=== PATIENT | male | born 1975 | race Caucasian/White ===

== ENCOUNTER 2023-06-21 07:30 | Emergency (ER) | payer OTHER, SELFPAY ==
[2023-06-21] VITALS (45 sets, daily range): BP systolic 105–184; BP diastolic 65–109; PULSE 53–76; RESP 9–24; TEMP 36.3; O2SAT 94–99; BMI 30.1
--- NOTE | 2023-06-21 07:43 | ECG_ITS ---
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
--- NOTE | 2023-06-21 07:43 | XR_ITS ---
The [address] [address] Patient Name: MARTIN BUCK MRN: [id number] date: 1975 Sex: M Assigned Patient Location: ER Current Patient Location: ER Accession/Order Number: [id number] Exam Date: 06/21/2023 07:48 Report Date: 06/21/2023 08:23 At the request of: DIANA HARRIS Procedure: XR chest 1V CHEST X-RAY, 1 VIEW HISTORY: Chest pain. COMPARISON: None. FINDINGS: The heart, rosales, and mediastinum are unremarkable. The lungs are grossly clear. There are no pleural effusions. There is no pneumothorax. XR/XR chest 1V IMPRESSION: No evidence of acute cardiopulmonary disease. Electronically authenticated by: YANI MUSTAFA Date: 06/21/2023 08:23
[2023-06-21] MEDS: NITROGLYCERIN 0.4 MG BOTTLE PO (08:02)
[2023-06-21] MEDS: FAMOTIDINE/PF 20 MG/2 ML VIAL IV (08:02)
[2023-06-21 08:09] LABS: Basophils Percent Auto 0.5 % (0.2-2.0); Eosinophils Absolute Auto 0.3 10^3/uL (0.0-0.7); Eosinophils Percent Auto 4.1 % (0.9-7.0); Hematocrit 44.9 % (42.0-54.0); Immature Granulocytes Abs Auto 0.02 10^3/uL (0.00-0.03); Immature Granulocytes Pct Auto 0.3 % (0.0-0.5); Lymphocytes Absolute Auto 1.4 10^3/uL (1.2-3.8); Lymphocytes Percent Auto 23.3 % (20.5-60.0); Mean Corpuscular HGB Conc 35.6 g/dL (29.9-35.2); Mean Corpuscular Hemoglobin 31.1 pg (25.9-34.0); Mean Corpuscular Volume 87.2 fL (80.0-94.0); Mean Platelet Volume 9.9 fL (9.5-13.5); Monocytes Absolute Auto 0.5 10^3/uL (0.3-0.8); Monocytes Percent Auto 8.8 % (1.7-12.0); Neutrophils Absolute Auto 3.9 10^3/uL (1.4-6.5); Platelet Count 206 10^3/uL (150-450); Red Blood Count 5.15 10^6/uL (4.70-6.10); White Blood Count 6.1 10^3/uL (4.0-11.0)
[2023-06-21 08:20] LABS: INR 1.05; Prothrombin Time 11.1 sec (9.0-11.6)
[2023-06-21 08:25] LABS: Alanine Aminotransferase 105 U/L (16-63); Albumin Globulin Ratio 1.1; Albumin Level 4.3 g/dL (3.4-5.0); Alkaline Phosphatase 82 U/L (46-116); Anion Gap 14.2; Aspartate Amino Transferase 48 U/L (15-37); BUN Creatinine Ratio 18.7; Bilirubin Total 0.6 mg/dL (0.2-1.0); Calcium 9.4 mg/dL (8.5-10.1); Carbon Dioxide 28.4 mmol/L (21.0-32.0); Chloride 100 mmol/L (98-107); Estimated GFR (African America >60 (>=60); Estimated GFR (Non-African Ame >60 (>=60); Globulin 3.8 g/dL; Glucose 214 mg/dL (74-106); Potassium 3.6 mmol/L (3.5-5.1); Sodium 139 mmol/L (136-145); Total Protein 8.1 g/dL (6.4-8.2)
[2023-06-21 08:26] LABS: Glucometer 186 mg/dL (74-106)
[2023-06-21 08:27] LABS: Troponin I High Sensitivity 5.5 pg/mL (4.0-76.1)
--- NOTE | 2023-06-21 08:34 | CT_ITS ---
[address] [address] Patient Name: MARTIN BUCK MRN: [id number] date: 1975 Sex: M Assigned Patient Location: ER Current Patient Location: Accession/Order Number: [id number] Exam Date: 06/21/2023 08:48 Report Date: 06/21/2023 09:43 At the request of: DIANA HARRIS Procedure: CT abdomen pelvis wo con CT ABDOMEN AND PELVIS WITHOUT CONTRAST HISTORY: Abdominal pain. COMPARISON: None. METHOD: Dose reduction techniques were achieved by using automated exposure control and/or adjustment of mA and/or kV according to patient size and/or use of iterative reconstruction technique. FINDINGS: The lung bases are clear. The evaluation of solid organs is limited with no IV contrast. The evaluation for lymphadenopathy is very limited with no IV contrast. There is no intrahepatic biliary ductal dilatation. The spleen is normal in size. The adrenal glands are normal appearing. The liver is fatty. There is a small gallstone. There are no renal stones or hydronephrosis. There is no bowel wall thickening or obstruction. The appendix is normal appearing. There is no free fluid or free air. The prostate is normal in size. There are no bladder stones. There are no acute bony abnormalities. CT/CT abdomen pelvis wo con IMPRESSION: Small gallstone. Fatty liver. Normal appendix. Electronically authenticated by: YANI MUSTAFA Date: 06/21/2023 09:43
[2023-06-21 10:32] LABS: Troponin I High Sensitivity 6.1 pg/mL (4.0-76.1)
--- NOTE | 2023-06-21 11:42 | ED_ITS ---
HPI - Chest Pain General Chief Complaint: Chest Pain Stated Complaint: CHEST PAIN Time Seen by Provider: 06/21/23 07:42 Source: patient Mode of arrival: walk-in Limitations: no limitations History of Present Illness HPI narrative: The patient presenting to us with a epigastric discomfort although he did mention that it is extending to his behind the heart , the patient denies any cough fever or any other complaint he mentioned that this discomfort started at almost 4 AM, there was no sweating there was no nausea and the patient have no diarrhea or any other complaints. He did mention that last night he had no complaint he just had dinner went to sleep. The patient denies any discomfort with the any fatty food he also mentioned having family history of cardiac complaint with his father diagnosed with jeanette nary artery disease at the age of 35 The patient is not a cigarette smoker No difficulty breathing no chest pain he mentioned that the pain is more of a pressure-like and heartburn like Related Data Previous Rx's Medication Instructions Recorded famotidine 20 mg tablet (Pepcid) 20 mg PO BID #20 tabs 06/21/23 Allergies Allergy/AdvReac Type Severity Reaction Status Date / Time No Known Drug Allergies Allergy Verified 06/21/23 07:38 Review of Systems ROS Status of ROS 10 or more systems reviewed and unremark able except as noted in history and below [facility] Social History Smoking status: Current every day smoker Exam Narrative Exam Narrative: Nurses notes and vital signs reviewed and patient is not hypoxic. General: Well-appearing and in no apparent distress. Skin: Warm, dry, no pallor noted. No rash. Head: Normocephalic, atraumatic. Neck: Supple, non-tender. Eye: Pupils are equal, round and EOMI. No scleral icterus. Ears, Nose, Mouth, and Throat: TM are clear, no nasal mucosal hypertrophy. Oral mucosa is moist, no posterior oropharynx erythema, uvula is mid-line Cardiovascular: Regular Rate and Rhythm without murmur, gallop or rub. Respiratory: No accessory muscle use or respiratory distress. Lungs are clear to auscultation, no wheezing, rales or rhonchi Chest Wall: no tenderness Back: No midline thoracic or lumbar vertebral tenderness. No CVA tenderness Musculoskeletal: normal ROM, no calf or popliteal tenderness, no lower extremity edema/swelling GI: Abdomen is soft, non-distended. Normal bowel sounds. No masses appreciated. No tenderness to palpation. No rebound, guarding, or rigidity noted. Neurological: A&O x4. No cranial nerve dysfunction observed. No truncal ataxia. Moves all extremities. Sensation intact. Psychiatric: Cooperative and interactive. Normal mood and affect. Constitutional Vital Signs, click to edit/add: Last Vital Signs Temp 97.4 F L 06/21/23 07:36 Pulse 76 06/21/23 11:11 Resp 17 06/21/23 11:11 BP 160/93 H 06/21/23 11:10 Pulse Ox 98 06/21/23 11:11 O2 Del Method Room Air 06/21/23 07:49 Course Vital Signs Vital signs: Vital Signs Temperature 97.4 F L 06/21/23 07:36 Pulse Rate 60 06/21/23 07:36 Respiratory Rate 18 06/21/23 07:36 Pulse Oximetry 99 06/21/23 07:36 Oxygen Delivery Method Room Air 06/21/23 07:36 Temperature 97.4 F L 06/21/23 07:36 Pulse Rate 76 06/21/23 11:11 Respiratory Rate 17 06/21/23 11:11 Blood Pressure 160/93 H 06/21/23 11:10 Pulse Oximetry 98 06/21/23 11:11 Oxygen Delivery Method Room Air 06/21/23 07:49 MDM - Chest Pain MDM Narrative Medical decision making narrative: The patient is morbidly obese he did had an EKG initially showing sinus rhythm with a heart rate of [address] elevation or depression. We did provide the patient with nitroglycerin after which his blood pressure did drop to 120 but he did had some mild sweating but his EKG also did still showed no ST elevation or depression The patient CBC chemistry showed no acute pathology and the troponin repeated while showed no significant elevation The patient chest x-ray showed no acute pathology He did had a improvement with the Pepcid in the ER as well as nitroglycerin initially The patient presentation right now is mostly secondary to discomfort secondary to atypical chest pain and possibly acid reflux but the patient is a high risk and with his family history I did refer him to cardiology as outpatient and I did explain to him that right now we will out coronary artery disease acute event but we did not rule out coronary artery disease and he is at risk for that The patient CAT scan showed no acute pathology he was discharged home with Pepcid and referral to cardiology as outpatient was instruction to come back in case of any new symptoms The patient is to follow up with primary care physician in next 2-3 days or to return to the emergency department should any of the signs or symptoms worsen or new symptoms develop. The patient agrees with the following Diagnosis and Treatment plan and the patient will be discharged home. Lab Data Labs: Lab Results 06/21/23 06/21/23 06/21/23 Range/Units 07:40 08:25 10:05 WBC 6.1 (4.0-11.0) 10^3/uL RBC 5.15 (4.70-6.10) 10^6/uL Hgb 16.0 (14.0-18.0) g/dL Hct 44.9 (42.0-54.0) % MCV 87.2 (80.0-94.0) fL MCH 31.1 (25.9-34.0) pg MCHC 35.6 H (29.9-35.2) g/dL RDW 13.0 (11.0-15.0) % Plt Count 206 (150-450) 10^3/uL MPV 9.9 (9.5-13.5) fL Neut % (Auto) 63.0 (43.0-75.0) % Lymph % (Auto) 23.3 (20.5-60.0) % [place] % (Auto) 8.8 (1.7-12.0) % Eos % (Auto) 4.1 (0.9-7.0) % Baso % (Auto) 0.5 (0.2-2.0) % Neut # (Auto) 3.9 (1.4-6.5) 10^3/uL Lymph # (Auto) 1.4 (1.2-3.8) 10^3/uL [place] # (Auto) 0.5 (0.3-0.8) 10^3/uL Eos # (Auto) 0.3 (0.0-0.7) 10^3/uL Baso # (Auto) 0.0 (0.0-0.1) 10^3/uL Abs Immat Gran (auto) 0.02 (0.00-0.03) 10^3/uL Imm/Tot Granulo (auto) 0.3 (0.0-0.5) % PT 11.1 (9.0-11.6) sec INR 1.05 Sodium 139 (136-145) mmol/L Potassium 3.6 (3.5-5.1) mmol/L Chloride 100 (98-107) mmol/L Carbon Dioxide 28.4 (21.0-32.0) mmol/L Anion Gap 14.2 BUN 17.0 (7.0-18.0) mg/dL Creatinine 0.91 (0.70-1.30) mg/dL Est GFR ( Amer) >60 (>=60) Est GFR (Non-Af Amer) >60 (>=60) BUN/Creatinine Ratio 18.7 Glucose 214 H (74-106) mg/dL Calcium 9.4 (8.5-10.1) mg/dL Total Bilirubin 0.6 (0.2-1.0) mg/dL AST 48 H (15-37) U/L ALT 105 H (16-63) U/L Alkaline Phosphatase 82 (46-116) U/L Troponin I High Sens 5.5 6.1 (4.0-76.1) pg/mL Total Protein 8.1 (6.4-8.2) g/dL Albumin 4.3 (3.4-5.0) g/dL Globulin 3.8 g/dL Albumin/Globulin Ratio 1.1 POC Glucose 186 H (74-106) mg/dL Discharge Plan Discharge Chief Complaint: Chest Pain Clinical Impression: Chest pain due to GERD, Atypical chest pain Patient Disposition: Home, Self-Care Time of Disposition Decision: 11:08 Condition: Good Prescriptions / Home Meds: New famotidine [Pepcid] 20 mg tablet 20 mg PO BID Qty: 20 0RF Instructions: Chest Pain (DC), Indigestion (ED) Stand Alone Forms: Portal Instructions Referrals: Physician,Non-Staff, [Primary Care Provider] - 1 week BRITT HARE [Physician] - 1 week Discharge Date/Time: 06/21/23 11:19
--- NOTE | 2023-06-21 19:30 | ECG_ITS ---
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
== END 2023-06-21 11:19 | disposition home or self-care (01) ==
PROVIDERS: Emergency Provider Emergency Medicine
DX: K21.9 Gastro-esophageal reflux disease without esophagitis (principal); R07.89 Other chest pain; F17.200 Nicotine dependence, unspecified, uncomplicated; E66.01 Morbid (severe) obesity due to excess calories; Z68.30 Body mass index [BMI] 30.0-30.9, adult; Z82.49 Family history of ischemic heart disease and other diseases of the circulatory system
CPT/HCPCS: 36415; 71045; 74176; 80053; 82948; 84484; 85025; 85610; 93005; 96374; 99285

== ENCOUNTER 2023-08-02 11:10 | Emergency (ER) | payer OTHER, SELFPAY ==
[2023-08-02 11:16] VITALS: BP 165/100; PULSE 90; RESP 18; TEMP 37.1; O2SAT 96; BMI 30.1
--- NOTE | 2023-08-02 11:24 | PC.NURSE ---
Pt was having dental pain and saw his dentist on Friday and had a procedure on his right upper tooth/ gum. He was put on Augmentin but his right side of face is swelling and continues to swell, extending into right eye. He called the Dr and was told to come to ER. Face is swollen but still soft to touch.
--- NOTE | 2023-08-02 11:31 | CT_ITS ---
[address] [address] Patient Name: MARTIN BUCK MRN: [id number] date: 1975 Sex: M Assigned Patient Location: ER Current Patient Location: Accession/Order Number: [id number] Exam Date: 08/02/2023 11:58 Report Date: 08/02/2023 13:58 At the request of: DIANA HARRIS Procedure: CT facial bones wo con EXAM: CT scan of the facial bones. TECHNIQUE CT scan performed through the facial bones and reconstructed in the axial, coronal and sagittal plane. Dose reduction techniques were achieved by using automated exposure control and/or adjustment of mA and/or kV according to patient size and/or use of iterative reconstruction technique. HISTORY: Right-sided facial swelling and pain. FINDINGS: Overall quality of the examination is diminished by streak artifact from the patient's teeth. Stranding and increased density in the right cheek subcutaneous soft tissues. No definite buccal space phlegmon or abscess. Right maxillary periapical abscess right canine, measuring 11 mm in diameter and left second incisor measuring 5 mm. No evidence of mandibular periapical abscess or caries. Mucosal thickening right maxillary sinus. Mucosal thickening and air-fluid level left maxillary sinus. CT/CT facial bones wo con IMPRESSION: 1. Overall quality is diminished by beam hardening artifact from the patient's teeth. 2. Probable right cheek cellulitis. No definite buccal space phlegmon or abscess. 3. Maxillary periapical abscess, the largest of which measures 11 mm. Electronically authenticated by: Lisa KELLER Date: 08/02/2023 13:58
--- NOTE | 2023-08-02 11:31 | CT_ITS ---
[address] [address] Patient Name: MARTIN BUCK MRN: [id number] date: 1975 Sex: M Assigned Patient Location: ER Current Patient Location: Accession/Order Number: [id number] Exam Date: 08/02/2023 11:58 Report Date: 08/02/2023 12:36 At the request of: DIANA HARRIS Procedure: CT head/brain wo con Exam: CT scan of brain. TECHNIQUE: CT scan performed through the brain reconstructed in the axial, coronal sagittal plane. Dose reduction techniques were achieved by using automated exposure control and/or adjustment of mA and/or kV according to patient size and/or use of iterative reconstruction technique.. HISTORY: Right maxilla swelling headache FINDINGS: Normal examination of the brain. The ventricles, sulci, and basilar cisterns are normal in appearance. The cerebral hemispheres, brain stem and cerebellar hemispheres are normal. Farley-white interface is intact. No evidence of acute infarct. No evidence of mass, hemorrhage or density abnormality. The osseous structures are intact. Orbital apices normal. CT/CT head/brain wo con IMPRESSION: Normal examination. Electronically authenticated by: Lisa KELLER Date: 08/02/2023 12:36
--- OUTSIDE RECORDS SUMMARY | 2023-08-02 11:34 | XMS_ITS | CCD ---
Author Name Unknown Address [address] [place] [address] Organization [facility] Care Team Providers Care Raw Hide Trimmer Name Role Phone Juan Tubbs Unavailable Martin Calvert Unavailable Luis A Chavez Unavailable DO Juan Tubbs Primary Care Provider MD Luis A Chavez Attending Provider DO Juan Tubbs Primary Care Provider DO Juan Tubbs Attending Provider [phone] Juan Tubbs Primary Care Unavailable Luis A Chavez Admitting Unavailable Luis A Chavez Attending Unavailable Juan Tubbs Primary Care Unavailable Juan Tubbs Attending Unavailable Juan Tubbs Admitting Unavailable Juan Tubbs Primary Care Unavailable Luis A Chavez Admitting Unavailable Luis A Chavez Attending Unavailable Medications Current Medications Medication Drug Class(es) Dates Sig (Normalized) Sig (Original) {1 (ascorbic acid 7540 MG / polyethylene glycol 3350 11192 MG / potassium chloride 1200 MG / sodium ascorbate 87010 MG / sodium chloride 3200 MG Powder for Oral Solution) / 1 (polyethylene glycol 3350 713830 MG / potassium chloride 1000 MG / sodium chloride 2000 MG / sodium sulfate 9000 MG Powder for Oral Solution) } Pack [Plenvu] (2 sources) Osmotic Laxative, Vitamin C Start: 01-18-2022 Plenvu 140 GM dose 1 pouch at 4pm, dose 2 pouch A & B at 11pm Orally twice a day for 1 days BIN:[id number] PCN: [id number] GROUP:[id number] ID:[id number] Dec, Active atorvastatin 20 mg oral tablet (8 sources) HMG-CoA Reductase Inhibitor Start: 09-21-2020 take 1 tablet by mouth every twenty-four hours Atorvastatin Calcium 20 MG 1 tablet Orally Once a day for 90 day(s) Sep, Active colchicine 0.6 mg oral tablet (4 sources) Start: 12-03-2021 take 1 tablet by mouth every twelve hours Colchicine 0.6 MG 1 tablet as needed Orally every 12 hours for 5 day(s) Nov, Active omeprazole 40 mg delayed release oral capsule (10 sources) Proton Pump Inhibitor Start: 05-03-2022 take 40 mg by mouth once daily Omeprazole Active 40 MG PO Daily May 03, 2022 1:00am Problems Active Problems Problem Classification Problem Date Documented Date Episodic/Chronic Disorders of lipid metabolism (9 sources) Hyperlipidemia; Translations: [Hyperlipidemia, unspecified] Onset: 10-04-2021 Resolved: 10-04-2021 Chronic Esophageal disorders (8 sources) Gastroesophageal reflux disease; Translations: [Gastro-esophageal reflux disease without esophagitis] Chronic Gout and other crystal arthropathies (8 sources) Gout; Translations: [Gout, unspecified] Chronic Miscellaneous mental health disorders (8 sources) Psychophysiologic insomnia; Translations: [Psychophysiologic insomnia] Chronic Other hereditary and degenerative nervous system conditions (8 sources) Restless legs; Translations: [Restless legs syndrome] Chronic Unclassified (1 source) Encounter for general adult medical examination without abnormal findings; Translations: [Encounter for general adult medical examination without abnormal findings] Onset: 10-15-2022 Unclassified (1 source) Encounter for screening for malignant neoplasm of colon; Translations: [Encounter for screening for malignant neoplasm of colon] Onset: 05-03-2022 Unclassified (1 source) Encounter for preprocedural laboratory examination; Translations: [Encounter for preprocedural laboratory examination] Onset: 05-01-2022 Past or Other Problems Problem Classification Problem Date Documented Date Episodic/Chronic Other screening for suspected conditions (not mental disorders or infectious disease) (6 sources) Encounter for screening for cardiovascular disorders; Translations: [Encounter for screening for diabetes mellitus] Onset: 09-03-2021 Resolved: 01-17-2022 Episodic Results Test Name Value Interpretation Reference Range Facility Alanine aminotransferase [En zymatic activity/volume] in Serum or PlasmaOrdered By: Juan Tubbs on 10-15-2022 ALT [Catalytic activity/Vol] 84 U/L 7-52 [facility] Albumin [Mass/volume] in Ser um or Plasma by Bromocresol green (BCG) dye binding methoOrdered By: Juan Tubbs on 10-15-2022 Albumin BCG dye [Mass/Vol] 4.8 g/dL 3.5-5.7 [facility] Alkaline phosphatase [Enzyma tic activity/volume] in Serum or PlasmaOrdered By: Juan Tubbs on 10-15-2022 ALP [Catalytic activity/Vol] 62 U/L 34-104 [facility] Aspartate aminotransferase [ Enzymatic activity/volume] in Serum or PlasmaOrdered By: Juan Tubbs on 10-15-2022 AST [Catalytic activity/Vol] 50 U/L 13-39 [facility] Bilirubin.total [Mass/volume ] in Serum or PlasmaOrdered By: Juan Tubbs on 10-15-2022 Bilirubin [Mass/Vol] 0.8 mg/dL 0.3-1.0 [facility] Calcium [Mass/volume] in Ser um or PlasmaOrdered By: Juan Tubbs on 10-15-2022 Calcium [Mass/Vol] 9.2 mg/dL 8.6-10.3 [facility] Carbon dioxide, total [Moles /volume] in Serum or PlasmaOrdered By: Juan Tubbs on 10-15-2022 CO2 [Moles/Vol] 30.6 mmol/L 21.0-31.0 [facility] Chloride [Moles/volume] in S kyler or PlasmaOrdered By: Juan Tubbs on 10-15-2022 Chloride [Moles/Vol] 104 mmol/L 98-107 [facility] Cholesterol [Mass/volume] in Serum or PlasmaOrdered By: Juan Tubbs on 10-15-2022 Cholesterol [Mass/Vol] 217 mg/dL 140-200 [facility] Comment on above: Chol less than 200 m g/dl low riskChol 201-239 mg/dl borderline riskChol 240 mg/dl and greater high risk Cholesterol in LDL Calc [Mas s/Vol]Ordered By: Juan Tbubs on 10-15-2022 Cholesterol in LDL [Mass/Vol] 157 mg/dL 0-100 [facility] Comment on above: LDL ATP III CLASSIFI CATIONLDL less than 100 mg/dL OptimalLDL 100-129 mg/dL Near or above optimalLDL 130-159 mg/dL Borderline highLDL 160-189 mg/dL HighLDL greater than 189 mg/dL Very high Cholesterol in VLDL Calc [Ma ss/Vol]Ordered By: Juan Tubbs on 10-15-2022 Cholesterol in VLDL [Mass/Vol] 28 mg/dL [facility] Comprehensive Metabolic Pane dayanna 10-15-2022 Albumin [Mass/Vol] 4.8 g/dL Normal 3.5-5.7 [facility] Comment on above: Order Comment: Reaso n for Exam Well adult exam;Screening for diabetes mellitus;Screening fo Performed By: #### L IPID, CMP #### [facility] [address] Albumin/Globulin [Mass ratio] 1.8 {ratio} Normal [facility] Comment on above: Order Comment: Reaso n for Exam Well adult exam;Screening for diabetes mellitus;Screening fo Performed By: #### L IPID, CMP #### [facility] [address] [place] [address] [place] ALP [Catalytic activity/Vol] 62 U/L Normal 34-104 [facility] Comment on above: Order Comment: Reaso n for Exam Well adult exam;Screening for diabetes mellitus;Screening fo Performed By: #### L IPID, CMP #### [facility] [address] [place] [address] [place] ALT [Catalytic activity/Vol] 84 U/L High 7-52 [facility] Comment on above: Order Comment: Reaso n for Exam Well adult exam;Screening for diabetes mellitus;Screening fo Performed By: #### L IPID, CMP #### [facility] [address] [place] [address] [place] Anion gap [Moles/Vol] 11.4 mmol/L Normal 6.0-15.0 [facility] Comment on above: Order Comment: Reaso n for Exam Well adult exam;Screening for diabetes mellitus;Screening fo Performed By: #### L IPID, CMP #### [facility] [address] [place] [id number] [facility] AST [Catalytic activity/Vol] 50 U/L High 13-39 [facility] Comment on above: Order Comment: Reaso n for Exam Well adult exam;Screening for diabetes mellitus;Screening fo Performed By: #### L IPID, CMP #### [facility] [address] [place] [id number] [facility] Bilirubin [Mass/Vol] 0.8 mg/dL Normal 0.3-1.0 [facility] Comment on above: Order Comment: Reaso n for Exam Well adult exam;Screening for diabetes mellitus;Screening fo Performed By: #### L IPID, CMP #### [facility] [address] Calcium [Mass/Vol] 9.2 mg/dL Normal 8.6-10.3 [facility] Comment on above: Order Comment: Reaso n for Exam Well adult exam;Screening for diabetes mellitus;Screening fo Performed By: #### L IPID, CMP #### [facility] [address] Chloride [Moles/Vol] 104 mmol/L Normal 98-107 [facility] Comment on above: Order Comment: Reaso n for Exam Well adult exam;Screening for diabetes mellitus;Screening fo Performed By: #### L IPID, CMP #### [facility] [address] [place] [address] [place] CO2 [Moles/Vol] 30.6 mmol/L Normal 21.0-31.0 [facility] Comment on above: Order Comment: Reaso n for Exam Well adult exam;Screening for diabetes mellitus;Screening fo Performed By: #### L IPID, CMP #### [facility] [address] [place] [id number] [place] Creatinine [Mass/Vol] 0.86 mg/dL Normal 0.70-1.30 [facility] Comment on above: Order Comment: Reaso n for Exam Well adult exam;Screening for diabetes mellitus;Screening fo Performed By: #### L IPID, CMP #### [facility] [address] [place] [address] [place] GFR/1.73 sq M.predicted MDRD (S/P/Bld) [Vol rate/Area] mL/min/{1.73_m2} Normal [facility] Comment on above: Order Comment: Reaso n for Exam Well adult exam;Screening for diabetes mellitus;Screening fo Performed By: #### L IPID, CMP #### [facility] [address] [place] [id number] [facility] Globulin (S) [Mass/Vol] 2.7 g/dL Normal [facility] Comment on above: Order Comment: Reaso n for Exam Well adult exam;Screening for diabetes mellitus;Screening fo Performed By: #### L IPID, CMP #### [facility] [address] Glucose [Mass/Vol] 113 mg/dL High 70-100 [facility] Comment on above: Order Comment: Reaso n for Exam Well adult exam;Screening for diabetes mellitus;Screening fo Result Comment: [facility] Glucose Reference Range is dependent on time and content of last meal. Glucose of more than 200 mg/dL in a nonstressed, ambulatory subject supports the diagnosis of Diabetes Mellitus. ADA recommended reference range Performed By: #### L IPID, CMP #### [facility] [address] Potassium [Moles/Vol] 4.0 mmol/L Normal 3.5-5.1 [facility] Comment on above: Order Comment: Reaso n for Exam Well adult exam;Screening for diabetes mellitus;Screening fo Performed By: #### L IPID, CMP #### [facility] [address] [place] [id number] [facility] Protein [Mass/Vol] 7.5 g/dL Normal 6.4-8.9 [facility] Comment on above: Order Comment: Reaso n for Exam Well adult exam;Screening for diabetes mellitus;Screening fo Performed By: #### L IPID, CMP #### [facility] [address] [place] [id number] [facility] Sodium [Moles/Vol] 142 mmol/L Normal 136-145 [facility] Comment on above: Order Comment: Reaso n for Exam Well adult exam;Screening for diabetes mellitus;Screening fo Performed By: #### L IPID, CMP #### [facility] [address] [place] [id number] [place] Urea nitrogen [Mass/Vol] 18 mg/dL Normal 7-25 [facility] Comment on above: Order Comment: Reaso n for Exam Well adult exam;Screening for diabetes mellitus;Screening fo Performed By: #### L IPID, CMP #### [facility] [address] [place] [id number] [place] Creatinine [Mass/volume] in Serum or PlasmaOrdered By: Juan Tubbs on 10-15-2022 Creatinine [Mass/Vol] 0.86 mg/dL 0.70-1.30 [facility] Globulin Calc (S) [Mass/Vol] Ordered By: Juan Tubbs on 10-15-2022 Globulin (S) [Mass/Vol] 2.7 g/dL [facility] Glucose [Mass/volume] in Ser um or PlasmaOrdered By: Juan Tubbs on 10-15-2022 Glucose [Mass/Vol] 113 mg/dL 70-100 [facility] Comment on above: ADA recommended refe rence rangeRandom Glucose Reference Range is dependent on time and content of last meal. Glucose of more than 200 mg/dL in a nonstressed, ambulatory subject supports the diagnosis of Diabetes Mellitus. Lipid Panelon 10-15-2022 Cholesterol [Mass/Vol] 217 mg/dL High 140-200 [facility] Comment on above: Order Comment: Reaso n for Exam Well adult exam;Screening for diabetes mellitus;Screening fo Result Comment: Chol less than 200 mg/dl low risk Chol 201-239 mg/dl borderline risk Chol 240 mg/dl and greater high risk Performed By: #### L IPID, CMP #### [facility] [address] [place] [id number] [facility] Cholesterol in HDL [Mass/Vol] 32 mg/dL Normal 29-71 [facility] Comment on above: Order Comment: Reaso n for Exam Well adult exam;Screening for diabetes mellitus;Screening fo Result Comment: HDL CHOL ATP-III CLASSIFICATION Cardiovascular Risk HDL > or equal to 60 mg/dL LOW HDL < 40 mg/dL HIGH Performed By: #### L IPID, CMP #### [facility] [address] Cholesterol.total/Choles terol in HDL [Mass ratio] 6.8 {ratio} Normal <5.0 [facility] Comment on above: Order Comment: Reaso n for Exam Well adult exam;Screening for diabetes mellitus;Screening fo Result Comment: PERF ORMED BY: [place] [address] PATHOLOGIST CLIENT COORDINATOR VESNA BERNABE M.D. Performed By: #### L IPID, CMP #### [facility] [address] LDL Cholesterol,Calculated 157 mg/dL High 0-100 [facility] Comment on above: Order Comment: Reaso n for Exam Well adult exam;Screening for diabetes mellitus;Screening fo Result Comment: LDL ATP III CLASSIFICATION LDL less than 100 mg/dL Optimal LDL 100-129 mg/dL Near or above optimal LDL 130-159 mg/dL Borderline high LDL 160-189 mg/dL High LDL greater than 189 mg/dL Very high Performed By: #### L IPID, CMP #### [facility] [address] Triglyceride w/Reflex 142 mg/dL Normal 0-149 [facility] Comment on above: Order Comment: Reaso n for Exam Well adult exam;Screening for diabetes mellitus;Screening fo Result Comment: TRIG ATP III CLASSIFICATION TRIG less than 150 mg/dL Normal TRIG 150-199 mg/dL Borderline high TRIG 200-500 mg/dL High TRIG greater than 500 mg/dL Very high Standard traceable to the Center for Disease Conrtrol and Prevention (CDC) test method. Performed By: #### L IPID, CMP #### [facility] [address] VLDL CHOLESTEROL 28 mg/dL Normal [facility] Comment on above: Order Comment: Reaso n for Exam Well adult exam;Screening for diabetes mellitus;Screening fo Performed By: #### L IPID, CMP #### [facility] [address] No Panel InformationOrdered By: Juan Tubbs on 10-15-2022 Estimated GFR (CKD-EPI) > 60.0 mL/Min [facility] Creatinine Clearance (Chem N/A [facility] Potassium [Moles/volume] in Serum or PlasmaOrdered By: Juan Tubbs on 10-15-2022 Potassium [Moles/Vol] 4.0 mmol/L 3.5-5.1 [facility] Protein [Mass/volume] in Ser um or PlasmaOrdered By: Juan Tubbs on 10-15-2022 Protein [Mass/Vol] 7.5 g/dL 6.4-8.9 [facility] Serum or plasma albumin/glob ulin mass ratioOrdered By: Juan Tubbs on 10-15-2022 Albumin/Globulin [Mass ratio] 1.8 {ratio} [facility] Serum or plasma anion gap de terminationOrdered By: Juan Tubbs on 10-15-2022 Anion gap [Moles/Vol] 11.4 mmol/L 6.0-15.0 [facility] Serum or plasma high density lipoprotein (HDL) cholesterol measurementOrdered By: Juan Tubbs on 10-15-2022 Cholesterol in HDL [Mass/Vol] 32 mg/dL 29-71 [facility] Comment on above: HDL CHOL ATP-III CLA SSIFICATION Cardiovascular RiskHDL > or equal to 60 mg/dL LOWHDL < 40 mg/dL HIGH Serum or plasma total choles terol/high density lipoprotein (HDL) cholesterol mass ratOrdered By: Juan Tubbs on 10-15-2022 Cholesterol.total/Choles terol in HDL [Mass ratio] 6.8 {ratio} <5.0 [facility] Sodium [Moles/volume] in Ser um or PlasmaOrdered By: Juan Tubbs on 10-15-2022 Sodium [Moles/Vol] 142 mmol/L 136-145 [facility] Triglyceride [Mass/volume] i n Serum or PlasmaOrdered By: Juan Tubbs on 10-15-2022 Triglyceride [Mass/Vol] 142 mg/dL 0-149 [facility] Comment on above: TRIG ATP III CLASSIF ICATIONTRIG less than 150 mg/dL NormalTRIG 150-199 mg/dL Borderline highTRIG 200-500 mg/dL High TRIG greater than 500 mg/dL Very highStandard traceable to the Center for Disease Conrtrol and Prevention (CDC) test method. Urea nitrogen [Mass/volume] in Serum or PlasmaOrdered By: Juan Tubbs on 10-15-2022 Urea nitrogen [Mass/Vol] 18 mg/dL 01-14 [facility] COVID-19 Antigenon 2 COVID-19 Antigen Healthcare Worker?: N Reference Range: Negative Negative results, from patients with symptom onset beyond five days, should be treated as presumptive and confirmation with a molecular assay, if necessary, for patient management, may be performed. Negative results do not rule out COVID-19 and should not be used as the sole basis for treatment or patient management decisions, including infection control decisions. Negative results should be considered in the context of a patient's recent exposures, history and the presence of clinical signs and symptoms consistent with COVID-19. The Kraig SARS Antigen BRIANA does not differentiate between SARS-CoV and SARS-CoV-2. This test was developed and its performance characteristic determined by [facility] and validated at [facility]. This test has not been FDA cleared or approved. This test has been authorized by FDA under an Emergency Use Authorization (EUA). This test has been validated in accordance with the FDA's Guidance Document (Policy for Diagnostics Testing in Laboratories Certified to Perform High Complexity Testing under CLIA prior to Emergency Use Authorization for Coronavirus Disease-2019 during the Public Health Emergency) issued on September 23, 2019. This test is only authorized for the duration of time the declaration that circumstances exist justifying the authorization of the emergency use of in vitro diagnostic tests for detection of SARS-CoV-2 virus and/or diagnosis of COVID-19 infection under section 564(b)(1) of the Act, 21 U.S.C. 360bbb-3(b)(1), unless the authorization is terminated or revoked sooner. SARS-CoV+SARS-CoV-2 (COVID-19) Ag [Presence] in Respiratory specimen by Rapid immunoassay Negative for SARS Antigen by BRIANA PERFORMED BY: [facility] [address] [place] [address] PATHOLOGIST CLIENT COORDINATOR VESNA BERNABE M.D. [facility] Comment on above: Performed By: #### S LIONEL COVID-19 KRAIG #### [facility] [address] [place] [id number] [facility] COVID-19 SOFIAOrdered By: Viola Chavez on 05-01-2022 SARS-CoV+SARS-CoV-2 (COVID-19) Ag IA.rapid Ql (Resp) Negative Negative [facility] Comment on above: This is a duplicate Kraig SARS Antigen (BRIANA) result to be used for statistical tracking purpose only. No Panel InformationOrdered By: Luis A Chavez on 05-01-2022 SARS Antigen (LFIA) [facility] Kraig Ag Negativeon 05-01-20 Kraig Ag Negative Negative Normal Negative [facility] Comment on above: Result Comment: This is a duplicate Kraig SARS Antigen (BRIANA) result to be used for statistical tracking purpose only. PERFORMED BY: [facility] [address] [place] [address] PATHOLOGIST CLIENT COORDINATOR VESNA BERNABE M.D. Performed By: #### S OFNATALIOEG, COVID-19 KRAIG #### [facility] [address] [place] [id number] [facility] Vital Signs Date Time Vital Sign Value Performing Clinician Facility 05-03-2022 10:25-0500 Diastolic blood pressure 79 mm[Hg] DO Juan Tubbs Work Phone: [facility] 05-03-2022 10:25-0500 Heart rate 68 /min DO Juan Tubbs Work Phone: [facility] 05-03-2022 10:25-0500 Respiratory rate 16 /min DO Juan Tubbs Work Phone: [facility] 05-03-2022 10:25-0500 SaO2% (BldA) [Mass fraction] 96 % DO Juan Dickersonley Work Phone: [facility] 05-03-2022 10:25-0500 Systolic blood pressure 122 mm[Hg] DO Juan Tubbs Work Phone: [facility] 05-03-2022 08:32-0500 Body height 177.8 cm DO Juan Tubbs Work Phone: [facility] 05-03-2022 08:32-0500 Body temperature 98.2 [degF] DO Juan Tubbs Work Phone: [facility] 05-03-2022 08:32-0500 Body weight 92.98 kg DO Juan Tubbs Work Phone: [facility] 09-03-2021 09:00-0400 Body height 181.61 cm Juan Tubbs Other [employer] Other 09-03-2021 09:00-0400 Body mass index (BMI) [Ratio] 27.78 kg/m2 Juan Tubbs Other [facility] [facility] Other 09-03-2021 09:00-0400 Body weight 91.63 kg Juan Tubbs Other [employer] Other 09-03-2021 09:00-0400 Diastolic blood pressure 88 mm[Hg] Juan Tubbs Other [employer] Other 09-03-2021 09:00-0400 Respiratory rate 18 /min Juan Tubbs Other [employer] Other 09-03-2021 09:00-0400 SaO2% (BldA) [Mass fraction] 99 % Juan Tubbs Other [employer] Other 09-03-2021 09:00-0400 Systolic blood pressure 132 mm[Hg] Juan Tubbs Other [employer] Other Encounters Encounter Date Encounter Type Care Provider Facility Start: 11-12-2022 End: 11-12-2022 ambulatory Juan Tubbs Other [employer] Other Start: 11-12-2022 Telephone encounter Juan Gonzalez [facility] Start: 10-15-2022 End: 10-15-2022 ambulatory Juan Tubbs Facility:[facility] Start: 10-15-2022 End: 10-15-2022 ambulatory DO Juan Dickersonley Work Phone: [facility] Work Phone: Start: 10-15-2022 End: 10-15-2022 Patient encounter procedure DO Juan Tubbs Work Phone: [facility] Start: 06-03-2022 End: 06-03-2022 ambulatory Luis A Chavez Other [facility] Other Start: 06-03-2022 Telephone encounter Luis A Gonzalez [facility] Start: 05-03-2022 End: 05-03-2022 ambulatory Juan Dickersonley Facility:[facility] Start: 05-03-2022 End: 05-03-2022 Admission to same day surgery center DO Jaun Tubbs Work Phone: [facility] Start: 05-03-2022 End: 05-03-2022 ambulatory DO Juan Raymon Tubbs Work Phone: [facility] Work Phone: Start: 05-01-2022 End: 05-01-2022 ambulatory Juan Raymon Tubbs Facility:[facility] Start: 05-01-2022 End: 05-01-2022 ambulatory DO Juan Tubbs Work Phone: [facility] Work Phone: Start: 05-01-2022 End: 05-01-2022 Patient encounter procedure DO Juan Tubbs Work Phone: [id number] Start: 01-17-2022 End: 01-17-2022 ambulatory Luis A Chavez Other [employer] Other Start: 01-17-2022 Telephone encounter Luis A Gonzalez [facility] Start: 12-03-2021 End: 12-03-2021 ambulatory Juan Tubbs Other [employer] Other Start: 12-03-2021 Telephone encounter Juan Gonzalez [facility] Start: 11-21-2021 End: 11-21-2021 ambulatory Juan Tubbs Other [employer] Other Start: 11-21-2021 Telephone encounter Juan Gonzalez [facility] [place] Start: 10-19-2021 End: 10-19-2021 ambulatory Martin Calvert Other [employer] Other Start: 10-19-2021 Telephone encounter Martin Calvert [facility] Start: 10-04-2021 End: 10-04-2021 ambulatory Juan Tubbs Other [employer] Other Start: 10-04-2021 Telephone encounter Juan Gonzalez [facility] [place] Start: 09-03-2021 End: 09-03-2021 ambulatory Juan Tubbs Other [employer] Other Start: 09-03-2021 Encounter for genera l adult medical examination without abnormal findings Juan [facility] Start: 09-03-2021 Periodic preventive med est patient 40-64yrs Juan Tubbs [facility] [place] Procedures Date Procedure Procedure Detail Performing Clinician Start: 05-03-2022 Screening colonoscopy D Shaneka Tubbs Work Phone: SARS Antigen (LFIA) DO Mj Tubbs Work Phone: Plan of Treatment Date Care Activity Detail Author Start: 05-03-2022 [facility] Immunizations Immunization Date Immunization Notes Care Provider Tobias boyer 11-04-2020 COVID-19 Vaccine James - Documentation Purposes Only Juan Tubbs Other [employer] Other 07-07-2013 influenza, injectabl e, quadrivalent, preservative free Juan Tubbs Other [employer] Other Payers Date Payer Category Payer Self-pay [id number] 2019 Unknown [id number] Private Health Insurance [facility] [id number] Unknown [id number] Unknown [id number] Unknown [id number] Social History Date Type Detail Facility Sex Assigned At [facility] Other Start: 1975 Sex Assigned At Male F [facility] Start: 05-03-2022 End: 05-03-2022 Tobacco smoking status NHIS Never smoked tobacco (finding) [facility] Goals Date Patient Goal Desired Activity /State Clinical Notes 09-03-2021 to 05-03-2022 Note Date & Type Note Facility 05-03-2022 Procedure note [facility] 01-17-2022 Evaluation note Encounter Date Diagnosis Assessment Notes Dec, Screening for colon cancer (ICD-10 - Z12.11) [facility] Other 06-01-2022 Evaluation note* Encounter Date Diagnosis Assessment Notes Treatment Notes Treatment Clinical Notes Nov, Screening for colon cancer (ICD-10 - Z12.11) [facility] Other 04-14-2022 Evaluation note* Encounter Date Diagnosis Assessment Notes Treatment Notes Treatment Clinical Notes Sep, Elevated LFTs (ICD-1 0 - R79.89) Sep, Hyperlipidemia (ICD-10 - E78.5) [facility] Other 03-14-2022 Evaluation note* Encounter Date Diagnosis Assessment Notes Treatment Notes Treatment Clinical Notes Aug, Well adult exam (ICD-10 - Z00.00) Continue efforts with healthy diet and exercise, we will call with lab results. After discussion, he will proceed with colonoscopy, referral sent Aug, Screening for cardiovascular condition (ICD-10 - Z13.6) Aug, Screening for diabetes mellitus (ICD-10 - Z13.1) Aug, Screening for colon cancer (ICD-10 - Z12.11) [facility] [facility] Other Evaluation noteNo assessment information available [facility] Work Phone: History and physical note Author Luis A Chavez [facility] May 03, 2022 9:42am Note Date/Time May 03, 2022 9:42am [facility] [address] [place] [address] Gastroenterology H&P Signed Patient: Martin Hopkins MR#: [id number] : 1975 Acct:[id number] Age/Sex: 47 / M Adm Date: 2 Loc: Room: Type: [facility] Attending Dr: Luis A Chavez MD Copies to: MD Juan Partida, DO~ Date of Service: 05/03/2022 HISTORY & PHYSICAL: Patient's history with special attention to the cardiovascular, pulmonary systems and the current problem was reviewed with the patient immediately prior to the procedure. Present medications and doses reviewed in the EMR. Allergies and pertinent laboratory tests were also reviewedat this time in the EMR. The physical examination, as below, was then performed. Indication, assessment and HPI: 47-year-old male presents for screening colonoscopy Family history of GI malignancy? No PHYSICAL EXAMINATION Mouth and Pharynx : Moist mucus membranes, normal dentition Cardiac: Regular rate, regular rhythm Pulmonary: Clear to auscultation bilaterally, no wheezing Neurological: Alert and oriented x3, no focal deficits noted Abdomen: Abdomen soft, non-tender REVIEW OF SYSTEMS Constitutional: Denies malaise, fevers Cardiovascular: Denies chest pain, palpitations Respiratory: Denies shortness of breath, wheezing Gastrointestinal: Per HPI Genitourinary: Denies dysuria, polyuria Musculoskeletal: Denies joint swelling, joint stiffness Neurological: Denies numbness, tingling Integumentary: Denies rashes, skin lesions Endocrine: Denies fatigue, weight loss Written informed consent obtained from the patient. Risks (including but not limited to perforation, infection, bloating, bleeding, need for emergent surgeryand loss of life), benefits and alternatives explained and questions answered. The patient verbalized understanding. Based on history patient is an appropriate candidate for the procedure. Luis A Chavez MD Documented By: Luis A Chavez MD 05/03/22940 Signed By: <Electronically signed by Luis A Chavez MD> 05/03/22941 [facility] Work Phone: History general Narrative - Reported* Type Description Date Medical History hypercholesterolemia Medical History low HDL Medical History Esophageal reflux Medical History Gout Medical History Restless leg syndrome Surgical History No Surgical history information Hospitalization History No Hospitalization histo ry information Compliance [facility] Other Hissmjr general Narrative - Reported* Type Description Date Medical History hypercholesterolemia Medical History low HDL Medical History Esophageal reflux Medical History Gout Medical History Restless leg syndrome Surgical History No know Surgical history Hospitalization History No know Hospitalization history [facility] Other Hospital Discharge instructions Additional Instructions DISCHARGE INSTRUCTIONS FOR COLONOSCOPY WHAT TO EXPECT: - You may feel full, gassy or cramping after your procedure. In some cases, this may be from a few hours to a day. Walking may help relieve the discomfort. - You should begin to recover from anesthesia within 1 hour of the procedure, however may feel groggy for the next 24 hours. DO's AND DON'Ts: - Call your doctor right away if you have a hard abdomen, severe pain, are passing lots of bright red blood or clots. - Call your doctor if you develop any rashes, hives or difficulty breathing. - Let your doctor know if you have not had a bowel movement by 3 days after your procedure. - If you take 81 mg aspirin for your heart it is safe to resume this medication. - If you take other blood thinner medications your doctor will instruct you when these can safely be resumed. - Do NOT drive for 24 hours. - Do NOT operate machinery such as power tools, lawn mowers, snow blowers, sewing machines, etc. for 24 hours. - Avoid alcoholic beverages and drugs for allergies, nerves, or sleep. - Do NOT stay alone. Do NOT leave your child unattended. - Do NOT make important personal or business decisions or sign any legal documents. - Eat solid foods and drink liquids in smaller amounts than usual until normal appetite returns. If you should experience an upset stomach, liquids high in sugar content (soda, Bry-Aid, non-acid juices) are recommended. - You can resume normal activities tomorrow. FOLLOW UP & RECOMMENDATIONS: - Follow-up with Dr. Chavez as needed - Notify the doctor if you have any problems. - Repeat colonoscopy in 10 years. - Follow up with PCP. - Office number [phone].[facility] Work Phone: Reason for Referral Reason * Waiting for appt needs screening colonoscopy Diagnosis 1 Screening for colon cancer (Z12.11) Referral Organization [facility] Magen Doll Referring Provider First Name Juan Referring Provider Last Name Tubbs Referring Provider Specialty [facility] Referred Organization [facility] Gastroenterolo gy Referred Provider Martin Calvert Referred Address [address] [place] [id number] Referred Provider Specialty Gastroentero logy Referral Priority Routine General Notes Misty Ralph 08:22:59 AM >referral received and sent p2p successful per log Reason * Waiting for appt Screening colonoscopy Diagnosis 1 Screening for colon cancer (Z12.11) Referral Organization [facility] Family Magen Doll Referring Provider First Name Juan Referring Provider Last Name Arley Referring Provider Specialty [facility] Prac roxanne Referred Organization [facility] Gastroenterolo gy Referred Provider Luis A Chavez Referred Address [address] [facility] [address] ,[place], [place],[address] Referred Provider Specialty Gastroentero logy Referral Priority Routine General Notes Misty Ralph 07/2021 10:34:41 AM > referral received and sent p2p successful per log Chief Complaint and Reason for Visit Chief Complaint Screening Chief Complaint Screening Screening Chief Complaint Z00.00 Z13.1 Z13.6 Advance Directives Advance Directive Response Recorded Date/ Time Advance Directives No August 22 12:05pm Advance Directive Response Recorded Date/ Time Advance Directives No August 22 1:05pm Summary Purpose Family History No Family History Records Found Additional Source Comments REASON FOR VISIT (unrecogniz ed section and content) ANNUAL WELLNESSLAB RESULTSGA STRO UPDATEREFERRAL REQUESTColonoscopy/GoutMAIL PPWKGI NOTESNo Information Care Teams (unrecognized sec tion and content) Team Status: Inactive Member Role Status Dates Juan Tubbs DO Primary Care Provider Active Luis A Chavez MD Attending Provider Active Team Status: Active Member Role Status Dates Juan Tubbs DO Primary Care Provider Active Team Status: Inactive Member Role Status Dates Juan Tubbs DO Primary Care Provider, Attending Provider Active Goals (unrecognized section and content) Goals may be documented in a n alternate section (unrecognized sect ion and content) No Status Records Found INFORMATION SOURCE (unrecogn ized section and content) DATE CREATED AUTHOR 10/24/2022 [facility] FOR RECORDS PERTAINING TO PATIENTS WHO ARE OR HAVE BEEN ENROLLED IN A CHEMICAL DEPENDENCY/SUBSTANCEABUSE PROGRAM, SOME INFORMATION MAY BE OMITTED. This clinical summary was aggregated from multiple sources. Caution should be exercised in using it in the provision of clinical care. This summary normalizes information from multiple sources, and as a consequence, information in this document may materially change the coding, format and clinical context of patient data. In addition, data may be omitted in some cases. CLINICAL DECISIONS SHOULD BE BASED ON THE PRIMARY CLINICAL RECORDS. [facility] [employer] provides no warranty or guarantee of the accuracy or completeness of information in this document.
--- NOTE | 2023-08-02 14:27 | ED_ITS ---
HPI - Dental/Oral General Chief complaint: Dental/Oral Stated complaint: TOOTH AND FACIAL PAIN Time Seen by Provider: 08/02/23 11:31 Source: patient Mode of arrival: walk-in Limitations: language barrier History of Present Illness HPI Narrative: The patient presenting to us 2 days after he was treated by his dentist for right upper dental infection drainage he also was started on Augmentin 2 days ago, he noticed today that there is increase in swelling in the area he denies any fever or chills he had a headache prior to this for few seconds that went away but he does not have any headache at this moment. He also had no nausea vomiting or any abdominal pain or any other concerns Related Data Previous Rx's Medication Instructions Recorded famotidine 20 mg tablet (Pepcid) 20 mg PO BID #20 tabs 06/21/23 clindamycin HCl 300 mg capsule 300 mg PO Q8H 7 days #21 caps 08/02/23 Allergies Allergy/AdvReac Type Severity Reaction Status Date / Time No Known Drug Allergies Allergy Verified 06/21/23 07:38 Review of Systems ROS Status of ROS 10 or more systems reviewed and unremark able except as noted in history and below PFSH PFS Social History Smoking status: Never smoker Exam Narrative Exam Narrative: Nurses notes and vital signs reviewed and patient is not hypoxic. Dental exam shows multiple dental work with the tooth #6 there is a above it where drainage done 2 days ago and the patient does have gum erythema but I do not see any fluctuation, on face examination it was noted that the patient have right maxillary area mild edema and redness. The patient does have multiple dental works in his teeth General: Well-appearing and in no apparent distress. Skin: Warm, dry, no pallor noted. No rash. Head: Normocephalic, atraumatic. Neck: Supple, non-tender. Eye: Pupils are equal, round and EOMI. No scleral icterus. Ears, Nose, Mouth, and Throat: TM are clear, no nasal mucosal hypertrophy. Oral mucosa is moist, no posterior oropharynx erythema, uvula is mid-line Cardiovascular: Regular Rate and Rhythm without murmur, gallop or rub. Respiratory: No accessory muscle use or respiratory distress. Lungs are clear to auscultation, no wheezing, rales or rhonchi Chest Wall: no tenderness Back: No midline thoracic or lumbar vertebral tenderness. No CVA tenderness Musculoskeletal: normal ROM, no calf or popliteal tenderness, no lower extremity edema/swelling GI: Abdomen is soft, non-distended. Normal bowel sounds. No masses appreciated. No tenderness to palpation. No rebound, guarding, or rigidity noted. Neurological: A&O x4. No cranial nerve dysfunction observed. No truncal ataxia. Moves all extremities. Sensation intact. Psychiatric: Cooperative and interactive. Normal mood and affect. Constitutional Vital Signs, click to edit/add: Last Vital Signs Temp 98.7 F 08/02/23 11:16 Pulse 90 08/02/23 11:16 Resp 18 08/02/23 11:16 BP 165/100 H 08/02/23 11:16 Pulse Ox 96 08/02/23 11:16 O2 Del Method Room Air 08/02/23 11:16 Course Vital Signs Vital signs: Vital Signs Temperature 98.7 F 08/02/23 11:16 Pulse Rate 90 08/02/23 11:16 Respiratory Rate 18 08/02/23 11:16 Blood Pressure 165/100 H 08/02/23 11:16 Pulse Oximetry 96 08/02/23 11:16 Oxygen Delivery Method Room Air 08/02/23 11:16 Temperature 98.7 F 08/02/23 11:16 Pulse Rate 90 08/02/23 11:16 Respiratory Rate 18 08/02/23 11:16 Blood Pressure 165/100 H 08/02/23 11:16 Pulse Oximetry 96 08/02/23 11:16 Oxygen Delivery Method Room Air 08/02/23 11:16 MDM - Dental/Oral MDM Narrative Medical decision making narrative: The patient presented with a mild facial swelling just above the area where the dental drainage happened it could be secondary to dental infection and mild cellulitis The patient CAT scan of the head was done because the patient blood pressure was noted to be elevated in the ER and it was negative showing no acute pathology but he also have a CAT scan of the face showing no localized fluid or collection need to be drained although the patient did had maxillary area mild cellulitis. The patient have periapical abscess one of them is 11 mm and the other is almost 5 mm and I did explain to the patient that he still have an abscess he is to go back to his dentist. Right now there is no symptoms of systemic infection and the patient had clindamycin added to his Augmentin but he was instructed about the importance of follow-up he does not have any significant pain and his edema is mild on exam The patient is to follow up with primary care physician in next 2-3 days or to return to the emergency department should any of the signs or symptoms worsen or new symptoms develop. The patient agrees with the following Diagnosis and Treatment plan and the patient will be discharged home. Discharge Plan Discharge Chief Complaint: Dental/Oral Clinical Impression: Cellulitis of face, Dental infection Patient Disposition: Home, Self-Care Time of Disposition Decision: 13:02 Condition: Good Prescriptions / Home Meds: New clindamycin HCl 300 mg capsule 300 mg PO Q8H 7 Days Qty: 21 0RF No Action famotidine [Pepcid] 20 mg tablet 20 mg PO BID Qty: 20 0RF Instructions: Cellulitis (ED) Stand Alone Forms: Portal Instructions Referrals: Physician,Non-Staff, MD [Primary Care Provider] - 1 week Discharge Date/Time: 08/02/23 13:30
== END 2023-08-02 13:30 | disposition home or self-care (01) ==
PROVIDERS: Emergency Provider Emergency Medicine
DX: L03.211 Cellulitis of face (principal); K04.7 Periapical abscess without sinus
CPT/HCPCS: 70450; 70486; 99284